=== PATIENT | male | born 1965 | race Caucasian/White ===

== ENCOUNTER → 2016-10-01 | Outpatient (CLI) | payer MEDICARE, MEDICAID ==
[~2016-10-01] MED LIST: AMBIEN 10MG10 MG PO; ASPIRIN 81M81 MG/TA2 PO; ATIVAN 1MG T1 MG/TAB PO; B COMPLEX #11 TAB PO; B-121000 MCG PO; COLACE 100100 MG/CAP PO; COUMADIN 1010 MG/TAB PO; DEPO-TESTOS200 MG/M1 IM; DEXEDRINE SPANS15 M1; DEXEDRINE SPANS15 M1 PO; FLEXERIL 1010 MG/TAB PO; GLUCOPHAGE500 MG/TAB PO; JAKAFI10 MG PO; K-DUR20 MEQ PO; LASIX 80MG TABL80 MG PO; LEVEMIR100 U/ML SQ; LOMOTIL 0.025 M1 TAB PO; NATURAL L-LYSI500 MG PO; NEURONTIN300 MG/CAP PO; NIACIN 64 MG-501 TA1 PO; NITROSTAT0.4 MG/TAB SL; NORCO 325 MG-101 TAB PO; NORCO 325 MG-7.1 TAB PO; NOVOLOG 100U100 U/M1 SQ; PHENERGAN25 MG RC; SEE INSTRUCTIONS IT; See Instructions IT; TRAVEL SICKNESS25 MG PO; VITAMINC1000TA PO; ZOFRAN 4MG T4 MG/TAB PO; ZOLOFT 50MG50 MG PO
== END ==
LOC: ZCOL.LAB 16:09
DX: Z01.812 Encounter for preprocedural laboratory examination (principal); Z86.14 Personal history of Methicillin resistant Staphylococcus aureus infection

== ENCOUNTER 2016-12-11 09:05 | Observation (INO) | payer MEDICARE, MEDICAID ==
[2016-12-11] VITALS (7 sets, daily range): BP systolic 137–151; BP diastolic 75–91; PULSE 62–98; TEMP 36
[~2016-12-11] VITALS: Ht 177.8 cm; Wt 91.7 kg
[~2016-12-11 09:05] MED LIST changes: -AMBIEN 10MG10 MG PO; -ASPIRIN 81M81 MG/TA2 PO; -ATIVAN 1MG T1 MG/TAB PO; -B COMPLEX #11 TAB PO; -B-121000 MCG PO; -COLACE 100100 MG/CAP PO; -COUMADIN 1010 MG/TAB PO; -DEPO-TESTOS200 MG/M1 IM; -DEXEDRINE SPANS15 M1; -DEXEDRINE SPANS15 M1 PO; -FLEXERIL 1010 MG/TAB PO; -GLUCOPHAGE500 MG/TAB PO; -JAKAFI10 MG PO; -K-DUR20 MEQ PO; -LASIX 80MG TABL80 MG PO; -LEVEMIR100 U/ML SQ; -LOMOTIL 0.025 M1 TAB PO; -NATURAL L-LYSI500 MG PO; -NEURONTIN300 MG/CAP PO; -NIACIN 64 MG-501 TA1 PO; -NITROSTAT0.4 MG/TAB SL; -NORCO 325 MG-101 TAB PO; -NORCO 325 MG-7.1 TAB PO; -NOVOLOG 100U100 U/M1 SQ; -PHENERGAN25 MG RC; -TRAVEL SICKNESS25 MG PO; -VITAMINC1000TA PO; -ZOFRAN 4MG T4 MG/TAB PO; -ZOLOFT 50MG50 MG PO
[2016-12-11] MEDS ORDERED: AMBIEN 10MG10 MG PO (10:09)
[2016-12-11 10:10] LABS: INR 1.1 (0.8-3.0); PROTHROMBIN TIME 12.4 SECONDS (9.7-12.8)
[2016-12-11] MEDS ORDERED: LASIX 80MG TABL80 MG PO (10:10)
[2016-12-11] MEDS ORDERED: ATIVAN 1MG T1 MG/TAB PO (10:10)
[2016-12-11] MEDS ORDERED: JAKAFI10 MG PO (10:11)
[2016-12-11] MEDS ORDERED: NORCO 325 MG-101 TAB PO (10:12)
[2016-12-11] MEDS ORDERED: COUMADIN 1010 MG/TAB PO (10:13)
[2016-12-11] MEDS ORDERED: K-DUR20 MEQ PO (10:13)
[2016-12-11] MEDS ORDERED: ZOFRAN 4MG T4 MG/TAB PO (10:14)
[2016-12-11] MEDS ORDERED: PHENERGAN25 MG RC (10:14)
[2016-12-11] MEDS ORDERED: DEPO-TESTOS200 MG/M1 IM (10:15)
[2016-12-11] MEDS ORDERED: NITROSTAT0.4 MG/TAB SL (10:16)
[2016-12-11] MEDS ORDERED: DEXEDRINE SPANS15 M1 PO (10:18)
[2016-12-11] MEDS ORDERED: NEURONTIN300 MG/CAP PO ×2 (10:20→18:53)
[2016-12-11] MEDS ORDERED: GLUCOPHAGE500 MG/TAB PO (10:21)
[2016-12-11] MEDS ORDERED: FLEXERIL 1010 MG/TAB PO (10:22)
[2016-12-11] MEDS ORDERED: TRAVEL SICKNESS25 MG PO (10:22)
[2016-12-11] MEDS ORDERED: ZOLOFT 50MG50 MG PO (10:23)
[2016-12-11] MEDS ORDERED: LEVEMIR100 U/ML SQ (10:24)
[2016-12-11] MEDS ORDERED: NOVOLOG 100U100 U/M1 SQ (10:24)
[2016-12-11] MEDS ORDERED: B-121000 MCG PO (10:25)
[2016-12-11] MEDS ORDERED: VITAMINC1000TA PO (10:25)
[2016-12-11] MEDS ORDERED: B COMPLEX #11 TAB PO (10:26)
[2016-12-11] MEDS ORDERED: COLACE 100100 MG/CAP PO (10:26)
[2016-12-11] MEDS ORDERED: ASPIRIN 81M81 MG/TA2 PO (10:26)
[2016-12-11] MEDS ORDERED: NATURAL L-LYSI500 MG PO (10:27)
[2016-12-11] MEDS ORDERED: NIACIN 64 MG-501 TA1 PO (10:27)
[2016-12-11] MEDS ORDERED: LOMOTIL 0.025 M1 TAB PO (10:27)
[2016-12-11] MEDS ORDERED: DEXEDRINE SPANS15 M1 (18:53)
[2016-12-12 00:50] VITALS: BP 138/83; PULSE 75; TEMP 98.1
[2016-12-12 03:51] VITALS: BP 137/81; PULSE 73; TEMP 97.6
[2016-12-12] MEDS ORDERED: NORCO 325 MG-7.1 TAB PO (06:17)
== END 2016-12-12 10:00 | disposition home or self-care (01) ==
LOC: SDCO 09:05 → SURG 17:00 → SDCO 17:00 → SURG 17:01 → SDCO 12-12 10:00 → SURG 12-12 10:00
PROVIDERS: Orthopaedic Surgery
DX: M14.671 Charcot's joint, right ankle and foot (principal); M21.6X1 Other acquired deformities of right foot; E11.9 Type 2 diabetes mellitus without complications; I25.10 Atherosclerotic heart disease of native coronary artery without angina pectoris; M06.9 Rheumatoid arthritis, unspecified; M81.0 Age-related osteoporosis without current pathological fracture; K21.9 Gastro-esophageal reflux disease without esophagitis; G89.18 Other acute postprocedural pain; Z90.79 Acquired absence of other genital organ(s); Z90.49 Acquired absence of other specified parts of digestive tract; Z79.84 Long term (current) use of oral hypoglycemic drugs; Z79.4 Long term (current) use of insulin; Z79.01 Long term (current) use of anticoagulants; Z95.818 Presence of other cardiac implants and grafts; Z96.41 Presence of insulin pump (external) (internal); Z98.52 Vasectomy status; Z86.73 Personal history of transient ischemic attack (TIA), and cerebral infarction without residual deficits; Z82.62 Family history of osteoporosis; Z83.3 Family history of diabetes mellitus
CPT/HCPCS: OP; A9284; C1713; G0378; G8978-GP; G8979-GP; J0690; J1100; J1170; J1815; J1885; J2250; J2270; J2405; J2704; J3010; J7030

== ENCOUNTER → 2017-05-29 | Outpatient (CLI) | payer MEDICARE, MEDICAID ==
[~2017-05-29] MED LIST changes: +AMBIEN 10MG10 MG PO; +ASPIRIN 81M81 MG/TA2 PO; +ATIVAN 1MG T1 MG/TAB PO; +B COMPLEX #11 TAB PO; +B-121000 MCG PO; +COLACE 100100 MG/CAP PO; +COUMADIN 1010 MG/TAB PO; +DEPO-TESTOS200 MG/M1 IM; +DEXEDRINE SPANS15 M1; +DEXEDRINE SPANS15 M1 PO; +FLEXERIL 1010 MG/TAB PO; +GLUCOPHAGE500 MG/TAB PO; +JAKAFI10 MG PO; +K-DUR20 MEQ PO; +LASIX 80MG TABL80 MG PO; +LEVEMIR100 U/ML SQ; +LOMOTIL 0.025 M1 TAB PO; +NATURAL L-LYSI500 MG PO; +NEURONTIN300 MG/CAP PO; +NIACIN 64 MG-501 TA1 PO; +NITROSTAT0.4 MG/TAB SL; +NORCO 325 MG-101 TAB PO; +NORCO 325 MG-7.1 TAB PO; +NOVOLOG 100U100 U/M1 SQ; +PHENERGAN25 MG RC; +TRAVEL SICKNESS25 MG PO; +VITAMINC1000TA PO; +ZOFRAN 4MG T4 MG/TAB PO; +ZOLOFT 50MG50 MG PO
== END ==
LOC: ZCOL.LAB 15:54
DX: Z11.2 Encounter for screening for other bacterial diseases (principal); Z86.14 Personal history of Methicillin resistant Staphylococcus aureus infection

== ENCOUNTER 2017-06-17 11:02 | Day surgery (SDC) | payer MEDICARE, MEDICAID ==
[~2017-06-17] VITALS: Ht 177.8 cm; Wt 91.0 kg
[2017-06-17] MEDS ORDERED: PRIL40 PO (11:28)
[2017-06-17 12:01] LABS: INR 1.3 (0.8-3.0); PROTHROMBIN TIME 14.6 SECONDS (9.7-12.8)
[2017-06-17 12:22] VITALS: BP 141/84; PULSE 71; TEMP 97.7
[2017-06-17 15:30] VITALS: BP 120/72; PULSE 71; TEMP 97.9
[2017-06-17 15:45] VITALS: BP 113/68; PULSE 78
[2017-06-17 16:00] VITALS: BP 115/49; PULSE 66
[2017-06-17] MEDS ORDERED: CEPHALEXIN500 M1 PO (16:13)
[2017-06-17 16:15] VITALS: BP 124/71; PULSE 87
[2017-06-17 16:45] VITALS: BP 114/55; PULSE 69
== END 2017-06-17 17:25 | disposition home or self-care (01) ==
LOC: SDCO 11:02
PROVIDERS: Orthopaedic Surgery
DX: M14.672 Charcot's joint, left ankle and foot (principal); M81.0 Age-related osteoporosis without current pathological fracture; E11.610 Type 2 diabetes mellitus with diabetic neuropathic arthropathy; Z79.4 Long term (current) use of insulin; Z79.01 Long term (current) use of anticoagulants; Z79.82 Long term (current) use of aspirin; Z97.8 Presence of other specified devices; I25.2 Old myocardial infarction; M06.9 Rheumatoid arthritis, unspecified; Z86.73 Personal history of transient ischemic attack (TIA), and cerebral infarction without residual deficits; Z86.718 Personal history of other venous thrombosis and embolism; Z68.30 Body mass index [BMI] 30.0-30.9, adult; Z80.9 Family history of malignant neoplasm, unspecified; Z85.47 Personal history of malignant neoplasm of testis; K21.9 Gastro-esophageal reflux disease without esophagitis
CPT/HCPCS: C1713; J0690; J1100; J2250; J2405; J2704; J2765; J3010; J7030

== ENCOUNTER 2017-11-17 09:41 | Inpatient (IN) | payer MEDICARE, MEDICAID ==
[~2017-11-17] VITALS: Ht 177.8 cm; Wt 95.6 kg
[~2017-11-17 09:41] MED LIST changes: +CEPHALEXIN500 M1 PO; +PRIL40 PO
[2017-12-18] VITALS (8 sets, daily range): BP systolic 123–156; BP diastolic 74–87; PULSE 61–71; TEMP 97.5–98.3
[2017-12-18] MEDS ORDERED: [UNRECOGNIZED DRUG - OTHER] PO (06:29)
[2017-12-18] MEDS ORDERED: NIACIN 64 MG-501 TA1 PO (06:30)
[2017-12-18] MEDS ORDERED: L-LYSINE500 M1 PO (06:30)
[2017-12-18 06:59] LABS: PROTHROMBIN TIME 11.6 SECONDS (9.7-12.8)
[2017-12-19 04:16] VITALS: BP 150/87; PULSE 77; TEMP 98.3
[2017-12-19 06:00] LABS: HEMATOCRIT 42.7 % (42.0-52.0); HEMOGLOBIN 13.5 g/dl (13.5-18.0)
[2017-12-19 08:09] VITALS: BP 158/88; PULSE 88; TEMP 98
[2017-12-19 12:17] VITALS: BP 153/84; PULSE 85; TEMP 98
== END 2017-12-19 15:23 | disposition home health service (06) | DRG 41 ==
LOC: INPTSU 12-18 05:22 → SURG 12-18 07:30
PROVIDERS: Orthopaedic Surgery
PROC: 0Y6J0Z1 Detachment at Left Lower Leg, High, Open Approach (ICD-10-PCS; principal; 2017-12-18 07:30)
DX: E11.610 Type 2 diabetes mellitus with diabetic neuropathic arthropathy (principal); M86.9 Osteomyelitis, unspecified; M19.90 Unspecified osteoarthritis, unspecified site; M06.9 Rheumatoid arthritis, unspecified; E11.69 Type 2 diabetes mellitus with other specified complication; I87.2 Venous insufficiency (chronic) (peripheral); R12 Heartburn; Z86.73 Personal history of transient ischemic attack (TIA), and cerebral infarction without residual deficits
CPT/HCPCS: J0690; J1885; J2250; J2270; J2704; J2795; J7030; L1830

== ENCOUNTER → 2018-04-24 | Outpatient (CLI) | payer MEDICARE, MEDICAID ==
[~2018-04-24] MED LIST changes: +L-LYSINE500 M1 PO; +[UNRECOGNIZED DRUG - OTHER] PO
== END ==
LOC: ZCOL.LAB 14:05
DX: Z01.812 Encounter for preprocedural laboratory examination (principal); Z86.14 Personal history of Methicillin resistant Staphylococcus aureus infection